=== PATIENT | female | born 1960 | race Caucasian/White ===

== ENCOUNTER 2022-06-19 10:39 | Outpatient (CLI) | payer BC, SELFPAY ==
[2022-06-19 14:52] LABS: SARS PCR* POSITIVE SARS-CoV-2 (Negative)
== END 2022-06-19 10:40 | disposition home or self-care (01) ==
PROVIDERS: PCP Family Medicine; Visit Provider Nurse Practitioner Family
DX: J06.9 Acute upper respiratory infection, unspecified (principal); U07.1 COVID-19; R51.9 Headache, unspecified; B97.4 Respiratory syncytial virus as the cause of diseases classified elsewhere
CPT/HCPCS: 87635

== ENCOUNTER 2023-02-04 08:55 | Outpatient (CLI) | payer BC, SELFPAY | END 2023-02-04 08:56 | disposition home or self-care (01) | LOC: NFLDREF 02-06 01:40 | PROVIDERS: PCP Family Medicine; Referring Provider Family Medicine; Visit Provider Internal Medicine | DX: Z00.00 Encounter for general adult medical examination without abnormal findings (principal); E03.9 Hypothyroidism, unspecified; Z13.6 Encounter for screening for cardiovascular disorders | CPT/HCPCS: 80053; 80061; 84443 ==

== ENCOUNTER 2023-06-23 09:08 | Outpatient (CLI) | payer BC, SELFPAY ==
--- NOTE | 2023-06-23 09:45 | CRLHL7_ITS ---
For Patients: As a result of the Cures Act, medical imaging exams and procedure reports are released immediately into your electronic medical record. You may view this report before your referring provider. If you have questions, please contact your health care provider. BILATERAL SCREENING MAMMOGRAM WITH COMPUTER-AIDED DETECTION AND TOMOSYNTHESIS TECHNIQUE: CC and MLO views were obtained. These mammographic images have been obtained using full-field digital technique. These mammographic images were interpreted with the benefit of computer-aided detection. Breast Tomosynthesis was used in this interpretation. COMPARISON FILM: 01/01/22, 12/10/20, 03/19/18. FINDINGS: The breasts are heterogeneously dense, which may obscure small masses IMPRESSION: There is no radiographic evidence for malignancy. ASSESSMENT: BI-RADS Category 1: Negative RECOMMENDATION: Routine screening mammogram in 1 year. A lay language report of this examination will be provided to the patient. Bahman Cardenas M.D. Diagnostic Radiologist [email or web address] Transcribed: 2:43 p.vijaya clifford/Dictated by: Bahman Cardenas MD @ 06/24/2023 12:40:00 PM (Electronically Signed)
== END 2023-06-23 09:09 | disposition home or self-care (01) ==
LOC: MAMMO 09:09
PROVIDERS: PCP Family Medicine; Visit Provider Internal Medicine
DX: Z12.31 Encounter for screening mammogram for malignant neoplasm of breast (principal); R92.2 Inconclusive mammogram
CPT/HCPCS: 77063; 77067

== ENCOUNTER 2024-02-23 07:20 | Outpatient (CLI) | payer BC, SELFPAY ==
--- OUTSIDE RECORDS SUMMARY | 2024-02-29 08:02 | XMS_ITS | Data Portability ---
Author Name Unknown Address [address] [place] [address] Phone [phone] Organization [facility], Main Office Address [address] [place] [address] Assessment Encounter Date Assessment Date Assessment LastModified by Organization Details LastModified Time 12/19/2019 12/19/2019 1. Biopsy-proven basal carcinoma left ala here for Mohs surgery. We discussed pain, discomfort, scarring, chance of infection, chance of bleeding, potential grafts or flaps. If we graft we will use the donor site of the right ear venita bowl she sleeps on the left. We reviewed the fact that this will be the most difficult part of the surgery his ear will be tender may bleed and will heal slowly. We discussed potential scar,. Verbal and written informed consent was obtained. Area was cleansed with Betadine followed by alcohol. Anesthetized 1% lidocaine with epinephrine. As was the ear right conchal bowl. Prepped in a similar fashion. Stage I: Curette debulking performed after millimeter margins were taken revealed basaloid islands overlapping melanocytic nevoid islands. Stage II: 1 mm peripheral rims were taken circumferentially carried down to the mid dermis revealing basaloid islands in the deep portion peripheral rims clear. Stage III: The inner aspect of the defect sparing the peripheral rim was taken carried down to the deep dermis revealing no residual basal cell islands. : Total stages 3, total sections 3. Final defect 0.6 x 0.6 cm. The right ear was cleansed prepped as above stated a full-thickness graft was taken and placed into the alar defect. Sutured in place with rapid absorbing 4-0 Vicryl and a bolster stitch to the center. Pressure dressing applied recommend maintaining this for 3 to 5 days. Recommend minimal bending over, heavy lifting, minimizing coughing, blowing her nose and sneezing. Discussed techniques to minimize the above issues. After 5 days or 3 days she can remove the dressing clean and Aquaphor to be applied. Mohs case number [id number] 2. Neoplasm uncertain etiology left lateral cheek. She is somewhat concerned now because of the overlapping features clinically of the lesion on the nose looking like a nevus. There was a nevus on pathology with the Mohs layers. The area was anesthetized with 1% lidocaine with epinephrine, a tangential shave biopsy performed, tissue submitted and wound care instructions given. 3. Milia. 4. Irritant dermatitis left marionette line. We will bring her samples of Eucrisa cream. She does states she does have saliva touching her skin there at night. Follow-up in 1 week in [place] [id number] Not available 12/19/2019 23:03:54 Plan of Treatment Reminders Order Date Submit Date Provider Last Modified By Organization Details Last Modified Time Details Appointments None record ed. Lab pathol ogy, skin 020 12/19/19 20 [facility], [address] [place] [address], [address], [place], [address], 0 14:26:41 Referral None record ed. Procedures None record ed. Surgeries None record ed. Imaging None record ed. Medication Orders None record ed. Patient TargetsNo targets recorded. Patient InstructionsNo instructions recorded. Reason for Referral None Reported. Results Created Date Observation Date Name Description Value Unit Range Abnormal Flag LastModifiedBy Organization Detail LastModifiedTime Result Notes None recorded. Medical Equipment None Reported. Medications Name Sig Start Date Stop Date Status Note LastModified by Organization Details LastModified Time albuterol sulfate 2.5 mg/3 mL (0.083 %) solution for nebulization active Not Available Not Available Not Available triamcinolone acetonide 0.1 % topical cream active Not Available Not Availabl e Not Available levothyroxine 100 mcg tablet active Not Available Not Availab le Not Available levothyroxine 88 mcg tablet active Not Available Not Available N ot Available albuterol sulfate HFA 90 mcg/actuation aerosol inhaler active Not Available Not Availa ble Not Available nitrofurantoin monohydrate/macr ocrystals 100 mg capsule active Not Available Not Available Not Available Vitals None Recorded Social History None recorded. Functional Status None recorded. Mental Status None recorded. Family History Nothing Reported. Medical History No medical history recorded. Gynecological HistoryNo gynecological history recorded. Obstetrics History GPAL:G 0 P 0 0 0 0 Past Encounters Encounter ID Performer Location Encounter Start Date Encounter Closed Date Diagnosis/Indication Diagnosis SNOMED-CT Code [id number] Castillo Collins MD Main Office [address] [address] 12/19/2019 10:25:18 12/19/2019 23:13:45 Neoplasm of uncertain behavior of skin [id number] Basal cell carcinoma of nose [id number] Health Concerns Section Related Observation LastModified by Organization Detai ls LastModified Time None Recorded Concern Status LastModified by Organization Details LastModified Time None Recorded Advance Directives Directive None Recorded Payers Encounter Date Sequence Insurance Name Policy Number Policy Cormier Covered Member ID Cormier Member ID Guarantor Name 12/19/2019 1 [facility] [id number] Solomon Oliver [id number] Solomon Oliver Notes Date Note Type Note Provider Name and Address Organization Details Recorded Time 12/19/2019 text/html HPI Notes: Presents today for evaluation of a biopsy-proven basal carcinoma of the left ala. She is accompanied by her . Social history she is a nurse. She is well known to me from [place]. She had marked sun exposure throughout the years [place]. Outdoor sun exposure. Use 2 and still does surf . Raised in the sun. She would like a spot on the left lateral cheek biopsied as we thought the lesion on her nose was a mole. Is important to note that the Mohs layers did reveal an underlying nevus overlapping with the basal cell. This lesion she states is been present for months on her left lateral cheek or may be years no prior treatments no alleviating or aggravating factors. She also has a lesion on the right ala present for months. Does not hurt, does not bleed no prior treatment small. No alleviating or aggravating factors. Castillo Collins MD [address] [facility] [address] [address] [place], [address], [facility] 12/19/2019 23:13:37 OBGyn Episode No OBEpisode recorded.
== END 2024-02-23 07:21 | disposition home or self-care (01) ==
LOC: NFLDREF 02-29 08:00
PROVIDERS: PCP Internal Medicine; Referring Provider Internal Medicine; Visit Provider Internal Medicine
DX: E03.9 Hypothyroidism, unspecified (principal); Z13.228 Encounter for screening for other metabolic disorders; Z13.220 Encounter for screening for lipoid disorders
CPT/HCPCS: 80053; 80061; 84443

== ENCOUNTER 2025-06-23 07:30 | Outpatient (CLI) | payer MEDICARE, SELFPAY | END 2025-06-23 07:31 | disposition home or self-care (01) | LOC: NFLDREF 06-27 09:15 | PROVIDERS: PCP Internal Medicine; Referring Provider Internal Medicine; Visit Provider Internal Medicine | DX: E78.5 Hyperlipidemia, unspecified (principal); E03.9 Hypothyroidism, unspecified | CPT/HCPCS: 80053; 80061; 84443 ==